=== PATIENT | male | born 1970 | race Caucasian/White ===

== ENCOUNTER 2017-04-15 13:23 | Emergency (ER) | payer SELFPAY ==
[2017-04-15 13:32] VITALS: BP 164/90
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
== END 2017-04-15 14:29 | disposition home or self-care (01) ==
LOC: ED 13:23
DX: R58 Hemorrhage, not elsewhere classified (principal); V89.2XXA Person injured in unspecified motor-vehicle accident, traffic, initial encounter; Y93.9 Activity, unspecified; Y92.9 Unspecified place or not applicable
CPT/HCPCS: 99281